=== PATIENT | male | born 1950 | race Caucasian/White ===

== ENCOUNTER 2018-12-14 08:42 | Emergency (ER) | payer MEDICARE, MEDICAID ==
[~2018-12-14] VITALS: Ht 175.3 cm; Wt 81.1 kg
[2018-12-14] MEDS ORDERED: NITROGLYCERIN SINGLE TAB 0.4 MG SL ONE (09:22)
[2018-12-14] MEDS ORDERED: ASPIRIN 81 MG TABLET CHEW ONE (09:22)
[2018-12-14] MEDS ORDERED: FENTANYL PF 100 MCG/2ML ONE (09:23)
[2018-12-14] MEDS ORDERED: NITROGLYCERIN 0.4 MG BOTTLE (25 TABS) SL PRN (09:30)
[2018-12-14] MEDS ORDERED: ASPIRIN 81 MG TABLET CHEW PO ONE (09:30)
[2018-12-14] MEDS ORDERED: SODIUM CHLORIDE 0.9% 1,000ML IVBOLUS ONE (09:30)
[2018-12-14] MEDS ORDERED: SODIUM CHLORIDE FLUSH 10ML SYR IVF ONE (09:30)
--- NOTE | 2018-12-14 09:30 | NUR ---
PT PRESENTED TO ED WITH CHEST PAIN FOR 2 HOURS. PT WAS PLAYING A VIDEO GAME. PT A&OX4. PT PLACED IN ROOM AND PLACED ON BP, CARDIAC AND CONT. PULSE OXIMETER. ASSESSMENT COMPLETED. MD HAS SEEN PT AND ORDERS RECEIVED. IV STARTED AND BLOOD DRAWN. NITRO GIVEN 0.4MG SL. 2ND EKG DONE AND PRESENTED TO .
[2018-12-14] MEDS: FENTANYL PF 100 MCG/2ML IVPush PRN ×3 (09:34→11:35)
--- NOTE | 2018-12-14 09:41 | NUR ---
AFTER 1 NITRO. PT STATED HE FELT LIKE HE WAS GOING TO PASS OUT. BLOOD PRESSURE 72/43
[2018-12-14 09:52] LABS: BASOPHILS # (AUTO) 0.03 x10^3/uL (0-0.1); BASOPHILS % (AUTO) 0 % (0-1); EOSINOPHILS % (AUTO) 1 % (1-7); LYMPHOCYTES # (AUTO) 0.98 x10^3/uL (1-3.4); LYMPHOCYTES % (AUTO) 12 % (22-44); MD NO; MEAN CORPUSCULAR HEMOGLOBIN 28.3 pg (27.5-34.5); MEAN CORPUSCULAR HGB CONC 32.6 g/dL (33.2-36.2); MEAN CORPUSCULAR VOLUME 86.8 fL (81-97); MEAN PLATELET VOLUME 8.9 fL (7.4-10.4); MONOCYTES # (AUTO) 0.56 x10^3/uL (0.2-0.8); MONOCYTES % (AUTO) 7 % (2-9); NEUTROPHILS # (AUTO) 6.73 x10^3/uL (1.8-6.8); NEUTROPHILS % (AUTO) 80 % (42-75); PLATELET COUNT 263 x10^3/uL (130-400); RED BLOOD COUNT 5.97 x10^6/uL (4.38-5.82); RED CELL DISTRIBUTION WIDTH 14.2 % (9.4-14.8)
--- NOTE | 2018-12-14 09:55 | NUR ---
RN JLUIS IS ASSISTING THE PRIMARY RN FABRIZIO. PT. HAS A SECOND IV IN PLACE. PT.'S VITALS ARE IMPROVING WITH THE NS BOLUS. PT. STATES HIS PAIN HAS IMPROVED. PT.'S REPEAT EKG IS COMPLETE. PT. IS LESS DIAPHORETIC AT THIS TIME. RN REMAINS AT THE BEDSIDE WITH DR. OLMEDO.
[2018-12-14 10:01] LABS: ALANINE AMINOTRANSFERASE 39 U/L (12-78); ALBUMIN 3.9 g/dL (3.4-5.0); ANION GAP 5 mmol/L (5-15); CHLORIDE 103 mmol/L (98-107); CREATININE 1.45 mg/dL (0.7-1.3); INTERNATIONAL NORMALIZED RATIO 1.03 (0.93-1.1); PROTHROMBIN TIME 10.8 Seconds (9.6-11.5)
[2018-12-14 10:05] LABS: ALKALINE PHOSPHATASE 135 U/L (45-117); BILIRUBIN,TOTAL 0.4 mg/dL (0.2-1.0); TOTAL PROTEIN 9.4 g/dL (6.4-8.2); TROPONIN I 0.018 ng/mL (0.000-0.045)
--- NOTE | 2018-12-14 10:10 | NUR ---
PT TAKEN TO RADIOLOGY FOR CT OF CHEST
[2018-12-14] MEDS ORDERED: OMNIPAQUE 350 MG/ML, 100ML BOTTLE ONE (10:14)
--- NOTE | 2018-12-14 10:21 | NUR ---
PT BACK FROM CT SCAN. PT WILL BE MOVED TO TRAUMA ROOM
--- NOTE | 2018-12-14 10:30 | NUR ---
REPORT GIVEN TO RENÉE MITCHELL. PT MOVED TO TRAUMA 4.
--- NOTE | 2018-12-14 10:35 | NUR ---
PT. REMAINS A & O X 4 WITH C/O BACK AND CHEST PAIN. PT. WAS MEDICATED ORDERED. PT. REMAINS MONITORED.
[2018-12-14] MEDS ORDERED: ESMOLOL/NS PMX 250 ML IV PRN (11:00)
--- NOTE | 2018-12-14 11:08 | NUR ---
STEPHEN BAZZI SPOKE WITH THE ER DOCTOR. RN IS TITRATING THE PT.'S GTT ORDERED. PT.'S BLOOD PRESSURE IS DECREASING. RN IS ATTEMPTING TO HIT THE DESIRED SYSTOLIC BLOOD PRESSURE OF 120.
--- NOTE | 2018-12-14 11:17 | NUR ---
PT.'S ESMOLOL GTT INCREASED AFTER DISCUSSING WITH DR. OLMEDO. PT.'S VITALS ARE IMPROVING.
--- NOTE | 2018-12-14 11:36 | NUR ---
PT.'S GTT IS TITRATED UP TO ACHEIVED A DESIRED SYSTOLIC BP OF 120. PT. WAS MEDICATED FOR PAIN.
[2018-12-14 11:39] VITALS: BP 112/75
--- NOTE | 2018-12-14 11:56 | NUR ---
REPORT WAS GIVEN TO LEONOR MITCHELL AT [facility]. [facility] IS HERE TO TRANSPORT. REPORT WAS GIVEN TO [facility]. PT.'S VITALS ARE WITHIN THE DESIRED RANGE STATED BY DR. PEARCE AND DR. OLMEDO. PT. REMAINS A & O X 4 AND STATES RELIEF FROM PAIN MEDS. PT. IS BEING TRANSPORTED AT THIS TIME.
[2018-12-14] MEDS ORDERED: FENTANYL PF 100 MCG/2ML IVPush PRN (12:00)
== END 2018-12-14 12:01 | disposition short-term general hospital (02) ==
LOC: ED 11:03
DX: I71.01 Dissection of thoracic aorta (principal); F17.200 Nicotine dependence, unspecified, uncomplicated
CPT/HCPCS: 36415; 71045; 71275; 80053; 84484; 85025; 85610; 85730; 93005; 96361; 96365; 96375; 96376; 99291; J3010; J7030; Q9967

== ENCOUNTER 2020-08-05 03:50 | Emergency (ER) | payer MEDICARE, MEDICAID ==
[~2020-08-05] VITALS: Ht 172.7 cm; Wt 82.8 kg
[2020-08-05] MEDS ORDERED: OMNIPAQUE 350 MG/ML, 100ML BOTTLE ONE (04:21)
[2020-08-05 04:31] LABS: BASOPHILS % (AUTO) 1 % (0-1); EOSINOPHILS % (AUTO) 11 % (1-7); LYMPHOCYTES % (AUTO) 20 % (22-44); MEAN CORPUSCULAR HGB CONC 32.7 g/dL (33.2-36.2); MEAN PLATELET VOLUME 8.1 fL (7.4-10.4); MONOCYTES % (AUTO) 13 % (2-9); NEUTROPHILS % (AUTO) 54 % (42-75); PLATELET COUNT 262 x10^3/uL (130-400); RED BLOOD COUNT 5.23 x10^6/uL (4.38-5.82); RED CELL DISTRIBUTION WIDTH 15.2 % (9.4-14.8)
[2020-08-05 04:35] LABS: MD NO
[2020-08-05 04:41] LABS: INTERNATIONAL NORMALIZED RATIO 1.09 (0.93-1.1); PROTHROMBIN TIME 11.5 Seconds (9.6-11.5)
[2020-08-05 04:42] LABS: ALANINE AMINOTRANSFERASE 25 U/L (12-78); ALBUMIN 3.2 g/dL (3.4-5.0); ANION GAP 8 mmol/L (5-15); CHLORIDE 107 mmol/L (98-107); CREATININE 1.56 mg/dL (0.7-1.3)
[2020-08-05 04:47] LABS: ALKALINE PHOSPHATASE 117 U/L (45-117); BILIRUBIN,TOTAL 0.3 mg/dL (0.2-1.0); TOTAL PROTEIN 7.8 g/dL (6.4-8.2); TROPONIN I 0.018 ng/mL (0.000-0.045)
[2020-08-05 04:52] LABS: SALICYLATE LEVEL < 1.7 mg/dL (2.8-20.0)
[2020-08-05 05:54] VITALS: BP 134/74
== END 2020-08-05 05:57 | disposition short-term general hospital (02) ==
LOC: ED 05:39
DX: I63.312 Cerebral infarction due to thrombosis of left middle cerebral artery (principal); N17.9 Acute kidney failure, unspecified; G93.40 Encephalopathy, unspecified; R41.82 Altered mental status, unspecified; I45.10 Unspecified right bundle-branch block; R94.31 Abnormal electrocardiogram [ECG] [EKG]; F17.200 Nicotine dependence, unspecified, uncomplicated
CPT/HCPCS: 36415; 70450; 70496; 70498; 71045; 80053; 80307; 82962; 84484; 85025; 85610; 85730; 93005; 99291; Q9967